=== PATIENT | female | born 1995 ===

== ENCOUNTER 2017-04-18 19:11 | Emergency (ER) | payer MEDICAID, OTHER ==
[2017-04-18 19:11] VITALS: BMI 34.2
[2017-04-18 19:25] VITALS: BP 120/64; PULSE 90; RESP 16; TEMP 98.1; O2SAT 100
--- NOTE | 2017-04-18 19:54 | ED PDOC ---
Addendum entered and electronically signed by Sonya Mayfield PA-C 04/19/17 12:03: Addendum Addendum: 04/19/17 12:02 Pt called and made aware of US results. will f/u with obgyn tis week for repeat US. Addendum entered and electronically signed by Florecita Marcos PA 04/19/17 11: 39: ED Course And Treatment - Laboratory Results Result Diagrams: 04/18/17 20:10 O2 Sat by Pulse Oximetry: 100 (RA) Progress Note: US read from radiologist: UTERUS: Single Live intrauterine gestation. CRL equivalent to 6 weeks 1 day gestatioin. Gestational sac diameter equivalent to 6 weeks 4 days gestation. age (Ultrasound estimated ): 6 weeks 3 days. Date of delivery (Ultrasound estimated) : 12/09/2017. Heart rate: 225 Bpm. This is above the normal range. Followup is advised. [place]- gestational hemorrhage: None. Normal 3 mm yolk sac identified. Uterus measures 9.1 x 4.3 x 5.8 cm. No mass CERVIX: Long and closed. No cervical abnormality seen. RIGHT OVARY: Measures 3.4 x 1.7 x 3.1 cm. No mass. Normal flow. LEFT OVARY: Measures 2.7 x 1.4 x 2.3 cm. No mass. Normal flow. FREE FLUID: None. OTHER FINDINGS: None. IMPRESSION: Single live intrauterine gestation of approximately 6 weeks 3 days gestational age. heart rate is above normal range and followup is advised with transvaginal pelvic ultrasound. No perigestational hemorrhage. Preliminary interpretation of this examination was reported by [facility] at 10:23 p.m. on 04/18/2017. There is concurrence of this report with the preliminary interpretation. Please note that the elevated heart rate was not described in the preliminary report of this examination. I called patient and left message to return call to ED. Original Note: HPI: Female Pain Time Seen by Provider: 04/18/17 19:38 Chief Complaint (Nursing): Female Genitourinary Chief Complaint (Provider): vaginal bleeding History Per: Patient History/Exam Limitations: no limitations Onset/Duration Of Symptoms: Days (x2) Current Symptoms Are (Timing): Still Present Additional Complaint(s): Raoul Buitrago is a 21 year old female, currently 12 weeks , who presents to the emergency department with a complaint of persistent, heavy vaginal bleeding associated with abdominal cramps, nausea and vomiting ongoing since last night. Denied fever, chills, dysuria or hematuria. Patient stated bleeding initially occurred 1 and half weeks ago but resolved after 1 day. She has not followed up with [facility] yet due to insurance issue but went to [facility] last week where an US was performed, revealing a gestational sac with no IUP noted and reported starting vitamins 2 weeks ago. P:0 PMD: none provided Past Medical History Reviewed: Historical Data, Nursing Documentation, Vital Signs Vital Signs: Last Vital Signs Temp 98.1 F 04/18/17 19:23 Pulse 90 04/18/17 19:23 Resp 16 04/18/17 19:23 BP 120/64 04/18/17 19:23 Pulse Ox 100 04/18/17 19:23 - Medical History PMH: Gastritis, Migraine Denies: Chronic Kidney Disease - Surgical History Surgical History: No Surg Hx - Family History Family History: States: No Known Family Hx - Social History Current smoker - smoking cessation education provided: No Alcohol: None Drugs: Denies - Home Medications Home Medications: Ambulatory Orders Medication Instructions Recorded Ondansetron [Zofran] 4 mg PO Q8H #15 tab 06/29/14 Ibuprofen [Motrin] 600 mg PO Q6 PRN #20 tab 11/22/14 Oxycodone HCl/Acetaminophen 1 tab PO Q4 #10 tab 11/22/14 [Percocet 325 mg-5 mg] Ciprofloxacin 0.3% [Ciloxan 0.3% 1 drop BOTHEYES QID #1 bottle 03/14/15 Oph] Sulfamethoxazole/Trimethopri 1 tab PO BID #20 tab 04/20/15 [Bactrim Ds 800 mg-160 mg] Oxycodone HCl/Acetaminophen 1 tab PO Q6 PRN #10 tab 04/21/15 [Percocet 325 mg-5 mg] Famotidine [Pepcid] 20 mg PO Q12 #14 tab 05/11/15 Ondansetron ODT [Zofran ODT] 4 mg PO Q6H PRN #16 odt 05/11/15 Ibuprofen [Motrin] 600 mg PO Q8 #20 tab 05/26/15 Sulfamethoxazole/Trimethopri 1 tab PO BID #14 tab 05/26/15 [Bactrim Ds 800 mg-160 mg] Oseltamivir Phosphate [Tamiflu] 1 cap PO BID #10 capsule 08/31/15 Ibuprofen [Motrin] 400 mg PO Q6 #30 tab 09/10/15 Ondansetron ODT [Zofran ODT] 4 mg PO Q8 PRN #12 odt 01/04/16 Ondansetron ODT [Zofran ODT] 4 mg PO TID #21 odt 03/03/16 Acetaminophen/Butalbital/Caf 1 - 2 tab PO Q6H PRN #15 tab 03/27/17 [Fioricet] Naproxen [Naprosyn] 500 mg PO BID PRN #20 tab 03/27/17 - Allergies Allergies/Adverse Reactions: Allergies Allergy/AdvReac Type Severity Reaction Status Date / Time No Known Allergies Allergy Verified 04/18/17 19:23 Review of Systems ROS Statement: Except As Marked, All Systems Reviewed And Found Negative Constitutional: Negative for: Fever, Chills Gastrointestinal: Positive for: Nausea, Vomiting, Abdominal Pain ("cramp") Genitourinary Female: Positive for: Vaginal Bleeding (heavy). Negative for: Dysuria, Hematuria Physical Exam - Reviewed Nursing Documentation Reviewed: Yes Vital Signs Reviewed: Yes - Physical Exam Appears: Positive for: Well, No Acute Distress Head Exam: Positive for: ATRAUMATIC, NORMOCEPHALIC Skin: Positive for: Warm, Dry Eye Exam: Positive for: EOMI, PERRL ENT: Negative for: Pharyngeal Erythema, Tonsillar Exudate Neck: Positive for: Painless ROM, Supple Cardiovascular/Chest: Positive for: Regular Rate, Rhythm, Chest Non Tender. Negative for: Murmur Respiratory: Positive for: Normal Breath Sounds. Negative for: Wheezing Gastrointestinal/Abdominal: Positive for: Bowel Sounds, Soft. Negative for: Tenderness, Mass, Distended, Guarding, Rebound Back: Positive for: Normal Inspection. Negative for: L CVA Tenderness, R CVA Tenderness Extremity: Positive for: Normal ROM. Negative for: Deformity Lymphatic: Negative for: Adenopathy Neurologic/Psych: Positive for: Alert. Negative for: Motor/Sensory Deficits - Laboratory Results Result Diagrams: 04/18/17 20:10 - ECG O2 Sat by Pulse Oximetry: 100 (RA) Pulse Ox Interpretation: Normal Medical Decision Making Medical Decision Making: Initial Impression: Vaginal bleeding; Differential Diagnosis: Threatening miscarriage; etopic ; UTI; spontaneous miscarriage Initial Plan: * BETA-HCG * Urine * Urine dipstick * CBC * US OB/transvag Time: 2222 --US OB FINDINGS: Gestation: Single live intrauterine with fetus corresponding to gestational age of 6 weeks and 1 day. heart rate is noted. Yolk sac noted. Uterus/cervix: See above Ovaries: Normal sized ovaries with vascular flow. Free fluid: No evidence of free fluid in the submitted images. IMPRESSION: Single live intrauterine with fetus corresponding to gestational age of 6 weeks and 1 day. heart rate is noted. Scribe Attestation: Documented by Shanna Fisher, acting as a scribe for Florecita Arguelles MD. Provider Scribe Attestation: All medical record entries made by the Scribe were at my direction and personally dictated by me. I have reviewed the chart and agree that the record accurately reflects my personal performance of the history, physical exam, medical decision making, and the department course for this patient. I have also personally directed, reviewed, and agree with the discharge instructions and disposition. Disposition - Clinical Impression Clinical Impression: Threatened miscarriage - Disposition [facility] - [facility]19/17 (CALL TOMORROW TO SETUP FOLLOW UP APPOINTMENT WITHIN A WEEK) Disposition: Routine/Home Disposition Time: 22:00 Condition: GOOD Additional Instructions: REST AND DRINK PLENTY OF HYDRATING FLUIDS FOR THE NEXT 48 HOURS DO NOT USE TAMPONS, DOUCHE OR HAVE SEX UNTIL YOU ARE REEVALUATED. CONTINUE VITAMINS. Instructions: Threatened Miscarriage (ED) Forms: [facility] ED School/Work Excuse
[2017-04-18 20:17] LABS: BASO # 0.1 K/uL (0.0-0.2); BASO % 0.4 % (0.0-2.0); EOS # 0.1 K/uL (0.0-0.7); EOS % 0.7 % (0.0-4.0); HEMOGLOBIN 12.1 g/dL (12.0-16.0); LYMPH # 2.6 K/uL (1.0-4.3); MEAN CELL VOLUME 84.9 fl (81.0-99.0); MEAN CORPUSCULAR HEMOGLOBIN 26.8 pg (27.0-31.0); MEAN CORPUSCULAR HGB CONC 31.5 g/dL (33.0-37.0); MEAN PLATELET VOLUME 7.7 fl (7.2-11.7); MONO % 7.5 % (0.0-10.0); NEUT # 9.7 K/uL (1.8-7.0); NEUT % 72.4 % (50.0-75.0); RBC 4.52 Mil/uL (3.80-5.20); RED CELL DISTRIBUTION WIDTH 13.7 % (11.5-14.5); WHITE BLOOD COUNT 13.4 K/uL (4.8-10.8)
--- NOTE | 2017-04-19 09:51 | US ---
PROCEDURE: OB Pelvic Ultrasound HISTORY: vag bleed pregn r/o ectopic COMPARISON: 04/11/2017 FINDINGS: UTERUS: Single Live intrauterine gestation. CRL equivalent to 6 weeks 1 day gestatioin Gestational sac diameter equivalent to 6 weeks 4 days gestation age (Ultrasound estimated): 6 weeks 3 days Date of delivery (Ultrasound estimated) : 12/09/2017 Heart rate: 225 Bpm. This is above the normal range. Followup is advised. [place]-gestational hemorrhage: None. Normal 3 mm yolk sac identified. Uterus measures 9.1 x 4.3 x 5.8 cm. No mass CERVIX: Long and closed. No cervical abnormality seen. RIGHT OVARY: Measures 3.4 x 1.7 x 3.1 cm. No mass. Normal flow. LEFT OVARY: Measures 2.7 x 1.4 x 2.3 cm. No mass. Normal flow. FREE FLUID: None. OTHER FINDINGS: None. IMPRESSION: Single live intrauterine gestation of approximately 6 weeks 3 days gestational age. heart rate is above normal range and followup is advised with transvaginal pelvic ultrasound. No perigestational hemorrhage. Preliminary interpretation of this examination was reported by [facility] at 10:23 p.m. on 04/18/2017. There is concurrence of this report with the preliminary interpretation. Please note that the elevated heart rate was not described in the preliminary report of this examination.
== END 2017-04-18 22:51 | disposition home or self-care (01) ==
LOC: H.ER 19:11
DX: O20.0 Threatened abortion (principal); Z3A.12 12 weeks gestation of pregnancy

== ENCOUNTER 2017-05-15 20:05 | Emergency (ER) | payer MEDICAID, OTHER ==
[2017-05-15 20:05] VITALS: BMI 34.2
[2017-05-15 20:27] VITALS: BP 145/87; PULSE 94; RESP 16; TEMP 98.1; O2SAT 97
[2017-05-15] MEDS ORDERED: Sodium Chloride 0.9% 1,000 ML IV STA (21:08)
[2017-05-15 21:18] LABS: BASO # 0.1 K/uL (0.0-0.2); BASO % 0.6 % (0.0-2.0); EOS # 0.1 K/uL (0.0-0.7); EOS % 0.4 % (0.0-4.0); HEMOGLOBIN 12.5 g/dL (12.0-16.0); LYMPH # 2.2 K/uL (1.0-4.3); LYMPH % 16.3 % (20.0-40.0); MEAN CELL VOLUME 84.2 fl (81.0-99.0); MEAN CORPUSCULAR HEMOGLOBIN 27.5 pg (27.0-31.0); MEAN CORPUSCULAR HGB CONC 32.7 g/dL (33.0-37.0); MEAN PLATELET VOLUME 8.2 fl (7.2-11.7); MONO # 0.8 K/uL (0.0-0.8); MONO % 5.9 % (0.0-10.0); NEUT # 10.2 K/uL (1.8-7.0); NEUT % 76.8 % (50.0-75.0); RBC 4.56 Mil/uL (3.80-5.20); RED CELL DISTRIBUTION WIDTH 13.3 % (11.5-14.5); WHITE BLOOD COUNT 13.3 K/uL (4.8-10.8)
[2017-05-15 21:40] LABS: SQUAMOUS EPITHIAL 5 /hpf (0-5); URINE AMORPHOUS SEDIMENT OCC /ul (<OCC); URINE BACTERIA FEW (<OCC); URINE BILIRUBIN NEGATIVE (NEGATIVE); URINE BLOOD NEGATIVE (NEGATIVE); URINE CLARITY TURBID (Clear); URINE COLOR YELLOW (YELLOW); URINE GLUCOSE (UA) NEG (Normal); URINE LEUKOCYTE ESTERASE SMALL Leu/uL (Negative); URINE NITRATE NEGATIVE (NEGATIVE); URINE PROTEIN 30 mg/dL (NEGATIVE); URINE UROBILINOGEN 0.2-1.0 mg/dL (0.2-1.0)
[2017-05-15 21:41] LABS: ALB/GLOB RATIO 1.3 (1.0-2.1); ALBUMIN 4.5 g/dL (3.5-5.0); ALT/SGPT 40 U/L (9-52); AST/SGOT 20 U/L (14-36); BLOOD UREA NITROGEN 6 mg/dl (7-17); CALCIUM 9.4 mg/dL (8.4-10.2); GFR AFRICAN-AMERICAN > 60; GFR NON-AFRICAN AMERICAN > 60
--- NOTE | 2017-05-15 22:36 | ED PDOC ---
HPI: Headache Time Seen by Provider: 05/15/17 20:29 Chief Complaint (Nursing): Headache Chief Complaint (Provider): Migraine History Per: Patient History/Exam Limitations: no limitations Additional Complaint(s): Patient is a 21 y/o female with a past medical history of migraines presenting to the emergency department for a typical migraine. Reports that the headache is frontal and located behind both eyes. Of note, patient is ten weeks (, P:0). Denies taking any pain medication due to fearing possible adverse effects on her . Also denies visual changes, photophobia, abdominal pain, vaginal bleeding, or other complaints. PCP: none provided. Past Medical History Reviewed: Historical Data, Nursing Documentation, Vital Signs Vital Signs: Last Vital Signs Temp 98.1 F 05/15/17 20:24 Pulse 94 H 05/15/17 20:24 Resp 16 05/15/17 20:24 BP 145/87 05/15/17 20:24 Pulse Ox 97 05/15/17 20:24 - Medical History PMH: Gastritis, Migraine Denies: Chronic Kidney Disease - Family History Family History: States: Unknown Family Hx - Social History Current smoker - smoking cessation education provided: No Ex-Smoker (has not smoked in the last 12 months): No Alcohol: None Drugs: Denies - Home Medications Home Medications: Ambulatory Orders Medication Instructions Recorded Ondansetron [Zofran] 4 mg PO Q8H #15 tab 06/29/14 Ibuprofen [Motrin] 600 mg PO Q6 PRN #20 tab 11/22/14 Oxycodone HCl/Acetaminophen 1 tab PO Q4 #10 tab 11/22/14 [Percocet 325 mg-5 mg] Ciprofloxacin 0.3% [Ciloxan 0.3% 1 drop BOTHEYES QID #1 bottle 03/14/15 Ophth] Sulfamethoxazole/Trimethopri 1 tab PO BID #20 tab 04/20/15 [Bactrim Ds 800 mg-160 mg] Oxycodone HCl/Acetaminophen 1 tab PO Q6 PRN #10 tab 04/21/15 [Percocet 325 mg-5 mg] Famotidine [Pepcid] 20 mg PO Q12 #14 tab 05/11/15 Ondansetron ODT [Zofran ODT] 4 mg PO Q6H PRN #16 odt 05/11/15 Ibuprofen [Motrin] 600 mg PO Q8 #20 tab 05/26/15 Sulfamethoxazole/Trimethopri 1 tab PO BID #14 tab 05/26/15 [Bactrim Ds 800 mg-160 mg] Oseltamivir Phosphate [Tamiflu] 1 cap PO BID #10 capsule 08/31/15 Ibuprofen [Motrin] 400 mg PO Q6 #30 tab 09/10/15 Ondansetron ODT [Zofran ODT] 4 mg PO Q8 PRN #12 odt 01/04/16 Ondansetron ODT [Zofran ODT] 4 mg PO TID #21 odt 03/03/16 Acetaminophen/Butalbital/Caf 1 - 2 tab PO Q6H PRN #15 tab 03/27/17 [Fioricet] Naproxen [Naprosyn] 500 mg PO BID PRN #20 tab 03/27/17 Doxylamine/Pyridoxine HCl (B6) 1 each PO QPM PRN #20 tablet. 05/15/17 [Millicent Jackson 10-10 mg Tablet] Miconazole Nitrate [Monistat 3] 1 each VG DAILY #1 kit 05/15/17 Nitrofurantoin Macrocrystals 100 mg PO BID #14 cap 05/15/17 [Macrobid] - Allergies Allergies/Adverse Reactions: Allergies Allergy/AdvReac Type Severity Reaction Status Date / Time No Known Allergies Allergy Verified 05/15/17 20:24 Review of Systems ROS Statement: Except As Marked, All Systems Reviewed And Found Negative Eyes: Negative for: Vision Change, Other (photophobia) Gastrointestinal: Negative for: Abdominal Pain Genitourinary Female: Negative for: Vaginal Bleeding Neurological: Positive for: Headache (frontal, behind both eyes) Physical Exam - Reviewed Nursing Documentation Reviewed: Yes Vital Signs Reviewed: Yes - Physical Exam Appears: Positive for: Well, Non-toxic, No Acute Distress Head Exam: Positive for: ATRAUMATIC, NORMAL INSPECTION, NORMOCEPHALIC Skin: Positive for: Normal Color, Warm, Dry Eye Exam: Positive for: Normal appearance, EOMI, PERRL Neck: Positive for: Normal Cardiovascular/Chest: Positive for: Regular Rate, Rhythm. Negative for: Murmur Respiratory: Positive for: Normal Breath Sounds. Negative for: Accessory Muscle Use, Respiratory Distress Gastrointestinal/Abdominal: Positive for: Normal Exam, Soft. Negative for: Tenderness Extremity: Positive for: Normal ROM. Negative for: Pedal Edema, Swelling Neurologic/Psych: Positive for: Alert, reconciliation clerk II-XII, Oriented (x3). Negative for : Motor/Sensory Deficits, Aphasia, Facial Droop - Laboratory Results Result Diagrams: 05/15/17 21:14 05/15/17 21:14 - ECG O2 Sat by Pulse Oximetry: 97 (RA) Pulse Ox Interpretation: Normal - Progress Re-evaluation Time: 23:20 Condition: Improved Medical Decision Making Medical Decision Making: Time: 21:08 Initial impression: Headache in the setting of Initial plan: ED Urine Acetaminophen 650 mg PO Reglan 10 mg IVP Normal Saline 1 L IV OB Ultrasound Reevaluation Scribe Attestation: Documented by Jocelyne Nuñez, acting as a scribe for Lily Car MD. Provider Scribe Attestation: All medical record entries made by the Scribe were at my direction and personally dictated by me. I have reviewed the chart and agree that the record accurately reflects my personal performance of the history, physical exam, medical decision making, and the department course for this patient. I have also personally directed, reviewed, and agree with the discharge instructions and disposition. Disposition - Clinical Impression Clinical Impression: Migraine, UTI in , Infection due to yeast - Patient ED Disposition Is Patient to be Admitted: No - Disposition Disposition: Routine/Home Disposition Time: 23:18 Condition: IMPROVED Additional Instructions: FOLLOW-UP WITH YOUR OB[facility] FOR REEVALUATION. Prescriptions: Doxylamine/Pyridoxine HCl (B6) [Millicent Jackson 10-10 mg Tablet] 1 each PO QPM PRN # 20 tablet. PRN Reason: Nausea/Vomiting Miconazole Nitrate [Monistat 3] 1 each VG DAILY #1 kit Nitrofurantoin Macrocrystals [Macrobid] 100 mg PO BID #14 cap Instructions: Migraine Headache (ED), Vulvovaginal Candidiasis (ED), Urinary Tract Infection in (ED) Forms: [employer] (Hungarian)
== END 2017-05-15 23:44 | disposition home or self-care (01) ==
LOC: H.ER 20:05
DX: G43.909 Migraine, unspecified, not intractable, without status migrainosus (principal); O23.40 Unspecified infection of urinary tract in pregnancy, unspecified trimester
CPT/HCPCS: 80053; 81003; 81025; 84702; 85025; 96374; 99284; J2765; J7040

== ENCOUNTER 2017-05-21 18:50 | Emergency (ER) | payer MEDICAID, OTHER ==
[2017-05-21 18:50] VITALS: BMI 34.2
[2017-05-21 18:58] VITALS: BP 135/79; PULSE 104; RESP 18; TEMP 98; O2SAT 97
[2017-05-21 19:33] LABS: BASO # 0.1 K/uL (0.0-0.2); BASO % 1.1 % (0.0-2.0); EOS # 0.1 K/uL (0.0-0.7); EOS % 1.1 % (0.0-4.0); HEMOGLOBIN 12.1 g/dL (12.0-16.0); LYMPH # 2.1 K/uL (1.0-4.3); LYMPH % 20.7 % (20.0-40.0); MEAN CELL VOLUME 84.5 fl (81.0-99.0); MEAN CORPUSCULAR HEMOGLOBIN 27.6 pg (27.0-31.0); MEAN CORPUSCULAR HGB CONC 32.7 g/dL (33.0-37.0); MEAN PLATELET VOLUME 7.9 fl (7.2-11.7); MONO # 0.7 K/uL (0.0-0.8); MONO % 7.1 % (0.0-10.0); NEUT # 7.1 K/uL (1.8-7.0); RBC 4.38 Mil/uL (3.80-5.20); RED CELL DISTRIBUTION WIDTH 13.7 % (11.5-14.5); WHITE BLOOD COUNT 10.1 K/uL (4.8-10.8)
[2017-05-21 19:52] LABS: SQUAMOUS EPITHIAL 4 /hpf (0-5); URINE BACTERIA RARE (<OCC); URINE BILIRUBIN NEGATIVE (NEGATIVE); URINE BLOOD NEGATIVE (NEGATIVE); URINE CALCIUM OXALATE CRYSTALS MANY /hpf (<OCC); URINE CLARITY CLOUDY (Clear); URINE COLOR YELLOW (YELLOW); URINE GLUCOSE (UA) NEG (Normal); URINE LEUKOCYTE ESTERASE NEG Leu/uL (Negative); URINE NITRATE NEGATIVE (NEGATIVE); URINE PROTEIN NEGATIVE (NEGATIVE); URINE UROBILINOGEN 0.2-1.0 mg/dL (0.2-1.0)
[2017-05-21 19:56] LABS: ALB/GLOB RATIO 1.3 (1.0-2.1); ALBUMIN 4.4 g/dL (3.5-5.0); ALT/SGPT 37 U/L (9-52); AST/SGOT 21 U/L (14-36); BLOOD UREA NITROGEN 6 mg/dl (7-17); CALCIUM 9.4 mg/dL (8.4-10.2); GFR AFRICAN-AMERICAN > 60; GFR NON-AFRICAN AMERICAN > 60
--- NOTE | 2017-05-21 19:57 | ED PDOC ---
HPI: Abdomen Time Seen by Provider: 05/21/17 19:08 Chief Complaint (Nursing): Abdominal Pain Chief Complaint (Provider): abdominal pain History Per: Patient History/Exam Limitations: no limitations Associated Symptoms: denies: Fever, Chills, Nausea, Vomiting, Diarrhea, Loss Of Appetite, Back Pain, Chest Pain, Constipation, Urinary Symptoms Additional Complaint(s): 21yo F in ED for eval of vaginal bleeding(scant) and resolved pelvic cramp. today. Pt had US in early in this month with normal US live IUP at 8 weeks. Pt then had vaginal bleeding. Pt denies nausea r/o voimting fever or chills. denies dizziness. states bleeding does not show on her panties or a pad. has an appointment wiht her obgyn this week. Abnormal Vaginal Bleeding: Yes Past Medical History Reviewed: Historical Data, Nursing Documentation, Vital Signs Vital Signs: Last Vital Signs Temp 98 F 05/21/17 18:54 Pulse 104 H 05/21/17 18:54 Resp 18 05/21/17 18:54 BP 135/79 05/21/17 18:54 Pulse Ox 97 05/21/17 19:59 - Medical History PMH: Gastritis, Migraine Denies: Chronic Kidney Disease - Family History Family History: States: Unknown Family Hx - Home Medications Home Medications: Ambulatory Orders Medication Instructions Recorded Ondansetron [Zofran] 4 mg PO Q8H #15 tab 06/29/14 Ibuprofen [Motrin] 600 mg PO Q6 PRN #20 tab 11/22/14 Oxycodone HCl/Acetaminophen 1 tab PO Q4 #10 tab 11/22/14 [Percocet 325 mg-5 mg] Ciprofloxacin 0.3% [Ciloxan 0.3% 1 drop BOTHEYES QID #1 bottle 03/14/15 Ophth] Sulfamethoxazole/Trimethopri 1 tab PO BID #20 tab 04/20/15 [Bactrim Ds 800 mg-160 mg] Oxycodone HCl/Acetaminophen 1 tab PO Q6 PRN #10 tab 04/21/15 [Percocet 325 mg-5 mg] Famotidine [Pepcid] 20 mg PO Q12 #14 tab 05/11/15 Ondansetron ODT [Zofran ODT] 4 mg PO Q6H PRN #16 odt 05/11/15 Ibuprofen [Motrin] 600 mg PO Q8 #20 tab 05/26/15 Sulfamethoxazole/Trimethopri 1 tab PO BID #14 tab 05/26/15 [Bactrim Ds 800 mg-160 mg] Oseltamivir Phosphate [Tamiflu] 1 cap PO BID #10 capsule 08/31/15 Ibuprofen [Motrin] 400 mg PO Q6 #30 tab 09/10/15 Ondansetron ODT [Zofran ODT] 4 mg PO Q8 PRN #12 odt 01/04/16 Ondansetron ODT [Zofran ODT] 4 mg PO TID #21 odt 03/03/16 Acetaminophen/Butalbital/Caf 1 - 2 tab PO Q6H PRN #15 tab 03/27/17 [Fioricet] Naproxen [Naprosyn] 500 mg PO BID PRN #20 tab 03/27/17 Doxylamine/Pyridoxine HCl (B6) 1 each PO QPM PRN #20 tablet. 05/15/17 [Millicent Jackson 10-10 mg Tablet] Miconazole Nitrate [Monistat 3] 1 each VG DAILY #1 kit 05/15/17 Nitrofurantoin Macrocrystals 100 mg PO BID #14 cap 05/15/17 [Macrobid] - Allergies Allergies/Adverse Reactions: Allergies Allergy/AdvReac Type Severity Reaction Status Date / Time No Known Allergies Allergy Verified 05/15/17 20:24 Review of Systems ROS Statement: Except As Marked, All Systems Reviewed And Found Negative Constitutional: Negative for: Fever, Chills Genitourinary Female: Positive for: Vaginal Bleeding, Pelvic Pain Physical Exam - Reviewed Nursing Documentation Reviewed: Yes Vital Signs Reviewed: Yes - Physical Exam Appears: Positive for: Well, Non-toxic, No Acute Distress Head Exam: Positive for: ATRAUMATIC, NORMAL INSPECTION, NORMOCEPHALIC Skin: Positive for: Normal Color, Warm, DRY Cardiovascular/Chest: Positive for: Regular Rate, Rhythm Respiratory: Positive for: CNT, Normal Breath Sounds Gastrointestinal/Abdominal: Positive for: Normal Exam, Bowel Sounds, Soft. Negative for: Tenderness Back: Positive for: Normal Inspection. Negative for: L CVA Tenderness, R CVA Tenderness Extremity: Positive for: Normal ROM Neurologic/Psych: Positive for: Alert, Oriented - Laboratory Results Result Diagrams: 05/21/17 19:30 05/21/17 19:30 - ECG O2 Sat by Pulse Oximetry: 97 - Progress ED Course And Treament: PT explained that last US r/o ectopic medical emergency. Pt made aware that some women bleed during their . Pt advised that labs will be done initially to asses Beta Quant and determine further testing if necessary. Pt understands Disposition - Clinical Impression Clinical Impression: Pelvic pain - Patient ED Disposition Is Patient to be Admitted: Transfer of Care - Disposition Disposition Time: 20:00 Condition: STABLE Forms: [facility] [facility] (Tajik)
--- NOTE | 2017-05-21 22:04 | ED PDOC ---
- Laboratory Results Result Diagrams: 05/21/17 19:30 05/21/17 19:30 - ECG O2 Sat by Pulse Oximetry: 97 - Progress ED Course And Treament: us Pelvic: IMPRESSION: 1. Single viable intrauterine as described. 2. Small subchorionic hemorrhage measuring 1.4 x 0.7 x 0.9 cm. Thank you for allowing us to participate in the care of your patient. Dictated and Authenticated by: Ronnie Becerra MD Disposition - Clinical Impression Clinical Impression: Pelvic pain - POA Present On Arrival: None - Disposition [facility]] Disposition: Routine/Home Disposition Time: 22:04 Condition: STABLE Instructions: Subchorionic Hemorrhage (ED) Forms: [facility] (Lao), [facility] ED School/Work Excuse
--- NOTE | 2017-05-22 09:31 | US ---
PROCEDURE: OB Pelvic Ultrasound HISTORY: vaginal bleeding/pelvic cramping COMPARISON: Pelvic ultrasound dated 05/04/2017. FINDINGS: UTERUS: Gestational sac: Single intrauterine gestation. Heart rate: 164 bpm. age (Ultrasound estimated): 11 weeks, 6 days [place]-gestational hemorrhage: Small subchorionic hemorrhage measuring 1.4 x 0.7 x 0.9 centimeter Date of delivery (Ultrasound estimated) : 12/02/2017 CERVIX: Long and closed. No cervical abnormality seen. RIGHT OVARY: Measures 2.2 x 0.9 x 1.9 cm. No mass lesion. Normal flow. LEFT OVARY: Not seen. FREE FLUID: None. OTHER FINDINGS: None. IMPRESSION: Unremarkable pelvic ultrasound. A live intrauterine gestation with mean gestational age of 11 weeks, 6 days. The heart rate is 164 beats per minute. Small 1.4 centimeter subchorionic hemorrhage is again identified inferiorly. Clinical follow-up is advised. The estimated date of delivery by ultrasound is 12/02/2017. The ultrasound dates correlate with the clinical dates.
== END 2017-05-21 22:54 | disposition home or self-care (01) ==
LOC: H.ER 18:50
DX: O20.8 Other hemorrhage in early pregnancy (principal); O26.891 Other specified pregnancy related conditions, first trimester; Z3A.11 11 weeks gestation of pregnancy; Z36.9 Encounter for antenatal screening, unspecified

== ENCOUNTER 2017-09-22 21:22 | Emergency (ER) | payer OTHER ==
[2017-09-22 21:45] VITALS: BMI 38.9
[2017-09-22] MEDS ORDERED: Lactated Ringer's 1,000 ML IV SCH (22:30)
[2017-09-22 23:03] LABS: BASO % 0.4 % (0.0-2.0); EOS # 0.1 K/uL (0.0-0.7); EOS % 1.2 % (0.0-4.0); HEMOGLOBIN 10.7 g/dL (12.0-16.0); LYMPH # 2.2 K/uL (1.0-4.3); LYMPH % 25.1 % (20.0-40.0); MEAN CELL VOLUME 82.8 fl (81.0-99.0); MEAN CORPUSCULAR HGB CONC 32.6 g/dL (33.0-37.0); MEAN PLATELET VOLUME 7.8 fl (7.2-11.7); MONO # 0.7 K/uL (0.0-0.8); MONO % 7.7 % (0.0-10.0); NEUT # 5.8 K/uL (1.8-7.0); NEUT % 65.6 % (50.0-75.0); RBC 3.97 Mil/uL (3.80-5.20); RED CELL DISTRIBUTION WIDTH 14.5 % (11.5-14.5); WHITE BLOOD COUNT 8.8 K/uL (4.8-10.8)
[2017-09-22 23:13] LABS: ALB/GLOB RATIO 1.1 (1.0-2.1); ALT/SGPT 30 U/L (9-52); AMYLASE 68 U/L (30-110); AST/SGOT 20 U/L (14-36); BLOOD UREA NITROGEN 6 mg/dl (7-17); CALCIUM 9.6 mg/dL (8.4-10.2); GFR AFRICAN-AMERICAN > 60; GFR NON-AFRICAN AMERICAN > 60; LIPASE 80 U/L (23-300)
[2017-09-22 23:39] LABS: SQUAMOUS EPITHIAL 3 /hpf (0-5); URINE BACTERIA RARE (<OCC); URINE BILIRUBIN NEGATIVE (NEGATIVE); URINE BLOOD NEGATIVE (NEGATIVE); URINE CALCIUM OXALATE CRYSTALS FEW /hpf (<OCC); URINE CLARITY CLOUDY (Clear); URINE COLOR YELLOW (YELLOW); URINE GLUCOSE (UA) NEG (Normal); URINE LEUKOCYTE ESTERASE NEG Leu/uL (Negative); URINE PROTEIN NEGATIVE (NEGATIVE); URINE UROBILINOGEN 0.2-1.0 mg/dL (0.2-1.0)
[2017-09-23 04:51] VITALS: BP 115/65; PULSE 98; TEMP 97.9; O2SAT 100
--- NOTE | 2017-09-24 14:19 | OBHP ---
Datetime: 09/22/2017 22:33 IP Adm Impression: , intrauterine ; No Active Labor IP Chief Complaint Other: Vomiting and diarrhea IP Adm Impression Other: Nausea and Vomiting IP Admit Plan: Observation/Evaluation Admit Comment, IP Provider: 22yo with IUP at 28.5wks presents here today c/o nausea and vomitin g since 4 days ago. She reports throwing up anything by mouth and feels thirsty. She had her last bow el movement 1 day ago but still feels nausea. She has not taken any meds for the condition. Denies any fever or chills, denies dysuria and frequency or cough. She denies VB or LOF and feels good movement. [place]: none FHR: Reactive Pelvic: Assessment: IUP at 28wks with Nausea nad Vomiting NST Reactive. Plan 1. IV Hydration 2. CBC,CMP, Amylase, lipase, Urinalysis, 3. Oral fluids. 23:32 Pt reevaluated. Labs Unremarkable Pt retains po oral fluids IV hydration. Plan: D/C Home F/U with OB clinic within 1 week Return to ER with [place] of symptoms. Extremities - PN: Normal Abdomen - PN: Normal Back - PN: Normal Lungs - PN: Normal Heart - PN: Normal Thyroid - PN: Normal Neurologic - PN: Normal General - PN: Normal FHR - Baseline A Provider: 140 Comments, ACOG Physical Exam: Appears well Heart: RRR Chest: CTA B/L Abd: Soft, NT, BS- present No epigastric tenderness Renal angle tenderness -ve Gestation - Est Wks by US: 28.5 EGA AdmitDate IP: 28.5 Vital Signs Provider: Reviewed IP Chief Complaint: Other NICHD Variability Prov Fetus A: Moderate 6-25bpm NICHD Accel Fetus A IP Provider: 15X15 FHR Category Provider Fetus A: Category I NICHD Decel Fetus A IP Provider: None Genitourinary Exam: Normal
== END 2017-09-23 00:48 | disposition home or self-care (01) ==
LOC: H.EROB2 21:22
DX: O21.0 Mild hyperemesis gravidarum (principal); Z3A.28 28 weeks gestation of pregnancy
CPT/HCPCS: 80053; 81003; 82150; 83690; 85025; 99283; J7120

== ENCOUNTER 2017-10-03 17:53 | Emergency (ER) | payer OTHER ==
[2017-10-03 19:31] VITALS: BMI 37.9
[2017-10-03] MEDS ORDERED: Lactated Ringer's 1,000 ML IV SCH (19:45)
--- NOTE | 2017-10-03 22:34 | OBHP ---
Datetime: 10/03/2017 19:22 IP Adm Impression: , intrauterine IP Chief Complaint Other: nausea/vomiting IP Admit Plan: Observation/Evaluation; Discharge home Admit Comment, IP Provider: CC: nausea and vomiting HPI: 22 YO @ 30.2wks IUP presents to [facility] for nausea and vomiting, with hx of gastritis. Pt s tates that her symptoms started Sunday when she started feeling very nautious and subsequently starte d vomiting. Total of 3x episodes of emesis sunday, 10x sunday and 3x today. Pt states that she has n ot been able to tolerate PO since Sunday. Emesis is yellow, no blood noted. Has hx of similiar episo de 1 week ago, was seen in [facility] for similair reason. No sick contacts at home, no new foods outside, eats at home. Endorsing good FM, no LOF, no VB and no ctx. MD: [facility], Dr. Guallpa ObHx: 8wks SAB in 2012, anemia PMH: denies SurgH: denies SH: denies ETOH, smoking and illict drug use FH: hx of DM in family Meds: PNV Allergies: NKDA PE GEN: NAD, looks dehydrated cardio: S1S2 no additional heart sounds Resp: clear breath sounds b/l Abdomen: Gravid, NT, BS+ Neuro: AAO x 3 Ext: NT, minimal pedel edema FM: 150, catagory I no ctx seen A/P: 22 YO @ 30.2wks IUP is seen in [facility] for nausea and vomiting. Pregancy related vs gastrit is. -IVF -continue monitor -cbc and cmp -pt would benefit from seeing grating machine operator as out patient Case discussed with Dr. Smiley Maldonado, PGY I OB Hospitalist Addendum: 22 yo at 30+2 wks w/ EDC 12/10/2017 w/ nausea and vomiting since M on., vomited x 3 on Sun, 10x on and 3-4 x today. Pt reports that she was sick on 09/22/2017, green d 4 days of N/V. Pt denies nauesa currently and reports that she gets sick after eating or drinking, sx similar to when she had gastritis prior to . Pt given 2 liters LR. Pt ablt to keep erich n crackers and madalyn-judi. Pt discharged home, has an u/s appoint tomorrow. Rec that she f/u w/ gas troenterologist. (ES) Pelvic Type - PN: Adequate Extremities - PN: Normal Abdomen - PN: Normal Back - PN: Normal Breast - PN: Not Done Lungs - PN: Normal Heart - PN: Normal Thyroid - PN: Not Done Neurologic - PN: Normal HEENT - PN: Normal General - PN: Normal FHR - Baseline A Provider: 150 Contraction Comments Provider: None EGA AdmitDate IP: 30.2 Vital Signs Provider: Reviewed Vital Signs Provider Details: Tachycardia IP Chief Complaint: Other NICHD Variability Prov Fetus A: Moderate 6-25bpm NICHD Accel Fetus A IP Provider: 15X15 FHR Category Provider Fetus A: Category I Genitourinary Exam: Normal DTRs - PN: Not Done
--- NOTE | 2017-10-03 22:36 | OBDCSUM ---
Datetime: 10/03/2017 22:27 Discharged to, Provider: Home Follow up at, Provider: Scheduled appt 10/18/17, [facility] Disch Instr Activity: Normal activity Disch Instr Diet: Restricted, specify Discharge Diet restrict Prov: fluids, small meals, bland diet Discharge Instructions, Provider: Routine instructions given Discharge Time: 10/03/2017 22:28 Follow up in weeks, Provider: next scheduled appoint Discharge Diagnosis Prov Other: Nausea and vomiting in
[2017-10-04 02:37] VITALS: BP 110/41; PULSE 134; RESP 18; TEMP 99; O2SAT 98
== END 2017-10-03 22:28 | disposition home or self-care (01) ==
LOC: H.EROB2 17:53
DX: O21.0 Mild hyperemesis gravidarum (principal); Z3A.30 30 weeks gestation of pregnancy
CPT/HCPCS: 99283; J7120

== ENCOUNTER 2017-12-14 16:08 | Inpatient (IN) | payer OTHER ==
[2017-12-14 17:01] VITALS: BMI 41.5
[2017-12-14 17:33] LABS: BASO % 0.5 % (0.0-2.0); EOS # 0.1 K/uL (0.0-0.7); EOS % 0.7 % (0.0-4.0); HEMOGLOBIN 11.4 g/dL (12.0-16.0); LYMPH # 1.6 K/uL (1.0-4.3); MEAN CELL VOLUME 79.5 fl (81.0-99.0); MEAN CORPUSCULAR HEMOGLOBIN 25.7 pg (27.0-31.0); MEAN CORPUSCULAR HGB CONC 32.4 g/dL (33.0-37.0); MEAN PLATELET VOLUME 8.7 fl (7.2-11.7); MONO # 0.8 K/uL (0.0-0.8); MONO % 9.2 % (0.0-10.0); NEUT # 6.4 K/uL (1.8-7.0); NEUT % 71.6 % (50.0-75.0); NRBC % 0.1 % (0.0-0.0); RBC 4.42 Mil/uL (3.80-5.20); RED CELL DISTRIBUTION WIDTH 17.1 % (11.5-14.5)
[2017-12-14 20:13] LABS: BARBITURATES, UR NEGATIVE (NEGATIVE); BENZODIAZEPINES, UR NEGATIVE (NEGATIVE); OPIATES, UR NEGATIVE (NEGATIVE); PHENCYCLIDINE, UR NEGATIVE (NEGATIVE)
[2017-12-15] MEDS: Lactated Ringer's 1,000 ML IV SCH ×5 (00:50→19:07)
[2017-12-15] MEDS ORDERED: NALBUPHINE HCL 10 MG/ML AMPUL IVP PRN (02:28)
--- NOTE | 2017-12-15 07:06 | OBPN ---
Datetime: 12/15/2017 06:36 Contraction Comments Provider: irregular q 5min FHR - Baseline A Provider: 120 NICHD Accel Fetus A IP Provider: 15X15 FHR Category Provider Fetus A: Category I NICHD Variability Prov Fetus A: Moderate 6-25bpm Dilatation, Provider: 4-5 Effacement, Provider: 70 Station, Provider: -2 Datetime: 12/15/2017 02:15 IP Progress Impression: Normal progression of labor IP Informed Consent Obtain: Vaginal Delivery IP Progress Plan: Continue present management IP Progress Note Comment: Pt seen and examined at bedside. contractions every 2-3 minutes; Cervix dilated 4 cm Stopped Cytotec Requesting pain control: ordered and administered nubain case d/w Dr. Maico Mancera MD PGY1 OB Hospitalist on-call 8PM-8AM : I was notified about progress...will observe labor progress...sto p Cytotec Vital Signs Provider: Reviewed; Within Normal Limits NICHD Decel Fetus A IP Provider: None Datetime: 12/14/2017 17:30 Presentation-Admit: Vertex Datetime: 10/03/2017 19:22 Vital Signs Provider Details: Tachycardia Datetime: 09/22/2017 22:33 Gestation - Est Wks by US: 28.5
[2017-12-15] MEDS ORDERED: Oxytocin 30 units/LR 500ML 30 U/500 ML BAG IV ONE (07:30)
--- NOTE | 2017-12-15 07:34 | OBPN ---
Datetime: 12/15/2017 06:36 IP Progress Note Comment: Patient states she wants to have breakfast. Patient tolerated cytotec x 2. last cytotec 2200 and dc due to ctx q-23h. case discussed with Dr Nina. -Agree with patient to have breakfast. -Will start pitocin after [facility]-call...spoke with pt about her condition (latent phase/slow progress)...will allo w to eat and start Piotcin augmentation after
[2017-12-15] MEDS ORDERED: Fentanyl/Bupivacaine HCl 250 ML EPI ONE (10:09)
--- NOTE | 2017-12-15 13:08 | OBPN ---
Datetime: 12/15/2017 11:48 IP Progress Impression: Normal progression of labor IP Informed Consent Obtain: Vaginal Delivery IP Procedures: Artificial ROM IP Progress Plan: Continue present management Membranes, Provider: Ruptured FHR - Baseline A Provider: 130 IP Progress Note Comment: Patient doing well, s/p epidural. VE=4/70/-1 TOCO = ctxing q 4 mins - Pitocin @ 8min A/P 1. Patient doing well, continue Pitocin for induction 2. CEFM and TOCO Vital Signs Provider: Reviewed; Within Normal Limits NICHD Accel Fetus A IP Provider: 15X15 NICHD Variability Prov Fetus A: Moderate 6-25bpm Dilatation, Provider: 4 Effacement, Provider: 70 Station, Provider: -1 NICHD Decel Fetus A IP Provider: None
--- NOTE | 2017-12-15 15:16 | OBPN ---
Datetime: 12/15/2017 15:09 IP Progress Impression: Normal progression of labor IP Informed Consent Obtain: Vaginal Delivery IP Procedures: Artificial ROM; Sterile Vag Exam IP Progress Plan: Continue present management Membranes, Provider: Ruptured Contraction Comments Provider: q 2 - 3 FHR - Baseline A Provider: 125 IP Progress Note Comment: Patient comfortable VE=5-6/70/0 VEX=877 mod cleo, +accels, no decels TOCO = ctxning q 2 mins, Pitocin at 20 mu/min A/P 1. Continue induction, patient progressing in labor 2. Pitocin can go up to 30 mu/min 3. CEFM and TOCO Vital Signs Provider: Reviewed; Within Normal Limits NICHD Accel Fetus A IP Provider: 15X15 NICHD Variability Prov Fetus A: Moderate 6-25bpm Dilatation, Provider: 5-6 Effacement, Provider: 70 Station, Provider: 0
[2017-12-15] MEDS ORDERED: Lidocaine 1% Inj (20ml) ONE (16:02)
--- NOTE | 2017-12-15 17:25 | OBPN ---
Datetime: 12/15/2017 17:21 IP Progress Impression: Reassuring heart rate IP Procedures: Sterile Vag Exam IP Progress Plan: Continue present management Contraction Comments Provider: q2-3min FHR - Baseline A Provider: 120s-130s IP Progress Note Comment: Patient resting comfortably without complaints. Continue current managemen t. Both maternal well-being and well-being reassuring at this time. Vital Signs Provider: Reviewed; Within Normal Limits NICHD Accel Fetus A IP Provider: 15X15 FHR Category Provider Fetus A: Category I NICHD Variability Prov Fetus A: Moderate 6-25bpm Dilatation, Provider: 5-6 Effacement, Provider: 100 Station, Provider: 0 NICHD Decel Fetus A IP Provider: None
[2017-12-15] MEDS ORDERED: ceFAZolin IV 2 gm in Dextrose 2 GM/50 ML BAG IVPB ONE (19:38)
[2017-12-15] MEDS ORDERED: Sodium Chloride 0.9% 1,000 ML IV SCH (19:45)
[2017-12-15] MEDS ORDERED: Lidocaine 2% PF (10 ml) Amp ONE (19:53)
[2017-12-15] MEDS ORDERED: Bupivacaine HCl 0.5% PF (30 ml) Inj ONE (19:53)
--- NOTE | 2017-12-15 19:53 | OBPN ---
Datetime: 12/15/2017 19:48 IP Progress Impression: Arrest of dilatation/descent; Reassuring heart rate IP Informed Consent Obtain: Section Delivery; Risks, Benefits and Alternatives Discussed IP Procedures: Sterile Vag Exam IP Progress Plan: Deliver- Section Contraction Comments Provider: q2-3 min FHR - Baseline A Provider: 130s IP Progress Note Comment: No cervical change in 4+ hours. Cervix also edematous. Discussed options w ith patient. Recommended delivery due to arrestive dilatation. Patient agrees with plan. Di scussed with patient the risks, benefits, alternatives of surgery. All patient questions answered. An esthesia notified. Vital Signs Provider: Reviewed; Within Normal Limits NICHD Accel Fetus A IP Provider: 15X15 FHR Category Provider Fetus A: Category I NICHD Variability Prov Fetus A: Moderate 6-25bpm Dilatation, Provider: 5-6 Effacement, Provider: 100 Station, Provider: 0 NICHD Decel Fetus A IP Provider: None
[2017-12-15] MEDS ORDERED: Morphine 5 mg/10 ml preservative-free Inj(Duramorph) ONE (19:54)
[2017-12-15] MEDS ORDERED: ePHEDrine 50 mg/ml Inj ONE (20:02)
[2017-12-15] MEDS ORDERED: Phenylephrine 10 mg/ml Inj ONE (20:07)
[2017-12-15] MEDS ORDERED: Succinylcholine 200 mg/10 ml Inj IV ONE (20:09)
[2017-12-15] MEDS ORDERED: Midazolam 2 MG/2 ML VIAL ONE (20:54)
[2017-12-15] MEDS ORDERED: Ketamine 50 mg/ml Inj (10 ml) ONE (20:56)
[2017-12-15] MEDS ORDERED: Oxycodone/Acetaminophen 5/325 mg Tab PO PRN ×3 (21:23→21:48)
[2017-12-15] MEDS ORDERED: DiphenhydrAMINE 50 mg/ml Inj IVP PRN (21:48)
[2017-12-15] MEDS ORDERED: Simethicone 80 mg Chewtab PO SCH (22:00)
--- NOTE | 2017-12-15 23:04 | OBDS ---
DELIVERY PERSONNEL Delivery Doctor: Cynthia Matthews MD Scrub Nurse: Yoana Almanza Experimental Mechanic Electrical: Yokasta Montiel RN Anesthesiologist: Rajiv Clifford MD Resident: Becki Simon MD MATERNAL INFORMATION Delivery Anesthesia: Epidural Medications in Delivery: oxytocin IV, methergine 0.2mg IM Estimated Blood Loss (ml): 800 Placenta Cultured: No Maternal Complications: None Provider Comments: Primary low flap transverse section via Pfannenstiel incision. Patient d elivered viable male with Apgars of 9 and 9 at one and 5 minutes respectively, 9 lbs. 12 oz., normal uterus, normal tubes and ovaries bilaterally. Estimated blood loss 800 mL Fluids 1100 mL lactated Ringer's Urine output 250 mL of clear urine No complications Patient tolerated delivery well. LABOR SUMMARY EDC: 12/10/2017 00:00 No. Babies in Womb: 1 Attempted: No Labor Anesthesia: Epidural LABOR INFORMATION Reason for Induction: Postterm Onset of Labor: 12/15/2017 12:00 Cervical Ripening Agents: Cytotec @ (Annotations: 50mcg given orally. ) Oxytocin: Induction Group B Beta Strep: Negative Steroids Given: None Reason Steroids Not Administered: Not Applicable MEMBRANES Membranes Rupture Method: Artificial Rupture of Membranes: 12/15/2017 12:00 Length of Rupture (hrs): 8.62 Amniotic Fluid Color: Clear Amniotic Fluid Amount: Moderate Amniotic Fluid Odor: Normal STAGES OF LABOR Stage 3 hrs: 0 Stage 3 min: 1 Total Time in Labor hrs: 8 Total Time in Labor min: 38 CSECTION DELIVERY Primary Indication: Secondary Arrest of Dilatation Secondary Indication: N/A CSection Urgency: Non Elective CSection Incidence: Primary Labor: Labor Elective: Nonelective CSection Incision: Lower Uterine Transverse Uterine Closure: Double-layer closure BABY A INFORMATION Infant Delivery Date/Time: 12/15/2017 20:37 Method of Delivery: Born in Route : No : N/A Forceps: N/A Vacuum Extraction: N/A Shoulder Dystocia : No (Annotations: Data stored by N on behalf of user) SHOULDER DYSTOCIA BABY A Delivery Date/Time: 12/15/2017 20:37 PRESENTATION/POSITION BABY A Presentation: Cephalic Cephalic Presentation: Vertex Vertex Position: Left Occipital Anterior PLACENTA INFORMATION BABY A Placenta Delivery Time : 12/15/2017 20:38 Placenta Method of Delivery: Manual Removal Placenta Status: Delivered SCORES BABY A Heart Rate 1 min: >100 bpm Resp Effort 1 min: Good Cry Reflex Irritability 1 min: Cough or Sneeze or Pulls Away Muscle Tone 1 min: Active Motion Color 1 min: Body [place], Extremities Blue SCORE 1 MIN: 9 Heart Rate 5 min: >100 bpm Resp Effort 5 min: Good Cry Reflex Irritability 5 min: Cough or Sneeze or Pulls Away Muscle Tone 5 min: Active Motion Color 5 min: Body [place], Extremities Blue SCORE 5 MIN: 9 INFORMATION BABY A Gestational Age at Delivery: 40.5 Gestational Status: Term Infant Outcome : Liveborn Infant Condition : Stable Infant Sex: Male IDENTIFICATION/MEDS BABY A ID Band Number: [id number] ID Band Location: Left Leg; Left Arm WEIGHT/LENGTH BABY A Infant Birthweight (gms): 4445 Weight (lb): 9 Weight (oz): 13 CORD INFORMATION BABY A No. Cord Vessels: 3 Nuchal Cord : N/A Cord Blood Taken: Yes Infant Suction: None ASSESSMENT BABY A Infant Complications: None Physical Findings at Delivery: Within Normal Limits Infant Respirations: Appears Normal Stunt Driver/ALS Called : No Care By: Dr. Mccullough/Dora Lopez RN Transferred To: Nursery
[2017-12-16] MEDS ORDERED: DiphenhydrAMINE 50 mg/ml Inj IVP PRN (01:42)
[2017-12-16] MEDS ORDERED: Oxycodone/Acetaminophen 5/325 mg Tab PO PRN (01:42)
[2017-12-16] MEDS: Simethicone 80 mg Chewtab PO SCH ×4 (04:00→22:05)
[2017-12-16 08:39] LABS: HEMOGLOBIN 8.6 g/dL (12.0-16.0); MEAN CELL VOLUME 79.5 fl (81.0-99.0); MEAN CORPUSCULAR HEMOGLOBIN 25.4 pg (27.0-31.0); MEAN CORPUSCULAR HGB CONC 31.9 g/dL (33.0-37.0); RBC 3.4 Mil/uL (3.80-5.20); RED CELL DISTRIBUTION WIDTH 17.1 % (11.5-14.5); WHITE BLOOD COUNT 11.4 K/uL (4.8-10.8)
[2017-12-16] MEDS: Oxycodone/Acetaminophen 5/325 mg Tab PO PRN ×2 (15:16→19:53)
--- NOTE | 2017-12-17 00:23 | OP ---
PROCEDURE DATE: 12/15/2017 PREOPERATIVE DIAGNOSIS: Arrest of dilatation and active labor. POSTOPERATIVE DIAGNOSIS: Arrest of dilatation and active labor. OPERATION PERFORMED: Primary low-flap transverse section via Pfannenstiel incision. OPERATIVE FINDINGS: Viable infant, male with Apgars of 9 and 9 at 1 and 5 minutes respectively, 9 pounds 12 ounces, normal uterus, normal tubes and ovaries bilaterally. ESTIMATED BLOOD LOSS: 800 mL. FLUIDS: 1100 mL Lactated Ringers. URINE OUTPUT: 250 mL of clear urine at the end of procedure. SURGEON: Dinesh Matthews MD TYPE OF ANESTHESIA: Epidural. ANESTHESIA ADMINISTERED BY: Dr. Clifford. COMPLICATIONS: None. DESCRIPTION OF PROCEDURE: The patient was taken to the operating room where epidural anesthesia was found to be adequate. The patient was prepped and draped in normal sterile fashion in dorsal supine position with a leftward tilt. A Pfannenstiel skin incision was made with scalpel. This was carried down through to the underlying layer of fascia with a scalpel. Midline dissection was made in the fascial layer of the scalpel. The fascial incision was then extended bilaterally and sharply with curved Flores scissors. The fascial layer was from the underlying rectus muscles, both bluntly and sharply with curved Flores scissors. The fascial incision was then extended. The rectus muscles were at the midline. The peritoneum was then identified, tented up with Katelynn clamps x2, and entered sharply with the Metzenbaum scissors. The peritoneal incision was then extended superiorly and inferiorly with good visualization of the urinary bladder. Bladder blade was inserted into the abdomen. The vesicouterine peritoneum was then identified, tented up with Katelynn clamps x2, and entered sharply with Metzenbaum scissors. This peritoneal incision was then extended bilaterally with Metzenbaum scissors. The bladder flap was created digitally. The [place] retractor was placed over the urinary bladder. The uterus was incised with a scalpel. The uterine incision was extended bilaterally, bluntly. The infant's head was delivered atraumatically. Nose and mouth were suctioned with bulb suction. The remainder of the was delivered without complication. The cord was clamped and cut. The was handed off to the awaiting environmental law professor. Cord gases were collected. Cord blood was collected. The placenta was removed manually. The uterus was cleared of all clots and debris. The uterine incision was repaired with 0 Vicryl in a running, locked fashion. The second layer of same suture was used to imbricate first and to obtain excellent hemostasis. Reinspection of the uterine incision proved excellent hemostasis. The abdomen and pelvis were irrigated with copious amounts of warm normal saline. Reinspection of the uterine incision proved excellent hemostasis. All instruments were removed from the patient. The peritoneal layer was closed with a running stitch of 2-0 chromic. The rectus muscles were reapproximated in the midline with a running stitch of 2-0 chromic. The fascial layer was closed with a running stitch of 0 Vicryl. Subcutaneous tissue was closed with a running stitch of 3-0 plain. The skin was closed with a subcutaneous stitch of 3-0 Vicryl. The patient tolerated the procedure well. All sponge count, lap count, and needle counts were correct x2. The patient was given 2 gm of Ancef just prior to the beginning of the procedure. There were no complications. The patient was taken to the recovery room in awake and stable condition. Dinesh Matthews MD
[2017-12-17] MEDS: Oxycodone/Acetaminophen 5/325 mg Tab PO PRN ×2 (00:50→04:45)
[2017-12-17] MEDS: Simethicone 80 mg Chewtab PO SCH ×4 (04:05→22:11)
--- NOTE | 2017-12-17 07:48 | OBPPN ---
Datetime: 12/17/2017 06:00 PP Pain Prov: Within normal limits PP Nausea Prov: Denies PP Flatus Prov: Yes PP BM Prov: No PP Breasts Prov: Not Done PP Heart Prov: Normal PP Lungs Prov: Normal PP Abdomen/Uterus Prov: Normal PP Lochia Prov: Normal PP Vulva/Perineum Prov: Not Done PP CVA Tenderness Prov: Not Done PP Extremities Prov: Normal PP C/S Incision Prov: Normal PP Progress Prov: Normal PP Impression Prov: Normal progression PP Plan Prov: Continue present management PP Progress Note Prov: Patient seen and examined today at bedside. No overnight events. Pt reports m ild abdominal pain well controlled with pain meds. Ambulating without difficulty. witho ut difficulty. Lochia less than menses volume. No BM yet but passing gas per rectum. Dressing removed last evening. Denies fever/chills, diarrhea, nausea/vomiting, chest pain, dyspnea, and dizziness. O: VSS0 GEN: NAD Cardio: S1S2, no murmurs Lungs: clear breath sounds b/l, no wheezing Abdomen: BS+, appropriate tenderness to palpation. Uterus is firm and at the level of the umbilicu s. Incision C/D/I. EXT: No edema, calves nontender NEURO/PSYCH: AAOx3, preserved affect and mood. A/P: 22 y/o female s/p c section doing well on POD 2. Afebrile. Anemia pp H/H 8.6/27.0. OOB with caution, encouraged ambulation. SCDs for DVT prophylaxis. Percocet 5/325mg q4, Motrin 600mg po q6, and Tylenol 650mg po q6 for pain as per pain scale Colace 100mg BID Iron BID. Encourage --YBecerra PGY1. OB Hospitalist Addendum: Pt seen and examined by me. Agree w/ above. POD 2 s/p c/s for arrest of dilation, doing well, breast and bottle feeding. Continue current management. (ES) IP PP Procedures: None Vital Signs Provider PP: Reviewed; Within Normal Limits
[2017-12-17] MEDS ORDERED: Lansinoh for Breast Feeding Mothers TP ONE (18:45)
[2017-12-18] MEDS: Simethicone 80 mg Chewtab PO SCH ×2 (03:48→09:31)
[2017-12-18] MEDS: Oxycodone/Acetaminophen 5/325 mg Tab PO PRN (10:23)
--- NOTE | 2017-12-18 11:31 | OBPPN ---
Datetime: 12/18/2017 06:19 PP Pain Prov: Within normal limits PP Nausea Prov: Denies PP Flatus Prov: Yes PP BM Prov: Yes PP Breasts Prov: Not Done PP Heart Prov: Normal PP Lungs Prov: Normal PP Abdomen/Uterus Prov: Normal PP Lochia Prov: Normal PP Vulva/Perineum Prov: Not Done PP CVA Tenderness Prov: Not Done PP Extremities Prov: Normal PP C/S Incision Prov: Normal PP Progress Prov: Normal PP Impression Prov: Normal progression PP Plan Prov: Discharge PP Progress Note Prov: Pt. is seen and examined at bedside this morning. No overnight events. Pt rep orts mild abdominal pain, but well controlled with pain meds. Tolerating well PO. witho ut difficulty. Lochia is similar to menses volume. + BM and gas per rectum. Denies fever/chills, diar serg, nausea/vomiting, chest pain, dyspnea, and dizziness. VSS Gen: NAD Cardio: s1s2, no m/r/g Resp: clear breath sounds b/l Abdomen: BS+, tenderness to palpation. Incision clean, intact, no erythema, exudates or dehiscence . Uterus is firm and at the level of the umbilicus. Ext: No edema, calves nontender Neuro/Psych: AAOx3, no focal deficit, preserved affect and mood. A/P: 22 yo s/p . Pt remains afebrile, doing well on POD 3. OOB with caution SCDs for DVT prophylaxis, encouraged ambulating Percocet 5/325mg/Ibuprofen 600mg for pain. Colace 100mg PO BID for constipation Iron for anemia. Encourage . PP CBC: 8.6/27.0 D/C home. YBecerra PGY1 IP PP Procedures: None Vital Signs Provider PP: Reviewed; Within Normal Limits
[2017-12-18 17:27] VITALS: BP 113/69; PULSE 90; RESP 19; TEMP 98.4; O2SAT 98
== END 2017-12-18 12:57 | disposition home or self-care (01) | DRG 370 ==
LOC: H.EROB2 16:08 → H.L&D 17:12 → H.OB/GYN 12-16 01:10
PROVIDERS: ADMIT Obstetrics & Gynecology; ATTEND Obstetrics & Gynecology
PROC: 10D00Z1 Extraction of Products of Conception, Low, Open Approach (ICD-10-PCS; principal; 2017-12-15)
PROC: 4A1HXCZ Monitoring of Products of Conception, Cardiac Rate, External Approach (ICD-10-PCS; 2017-12-15)
PROC: 3E0P7VZ Introduction of Hormone into Female Reproductive, Via Natural or Artificial Opening (ICD-10-PCS; 2017-12-15)
PROC: 10907ZC Drainage of Amniotic Fluid, Therapeutic from Products of Conception, Via Natural or Artificial Opening (ICD-10-PCS; 2017-12-15)
DX: O48.0 Post-term pregnancy (principal); O90.81 Anemia of the puerperium; O62.0 Primary inadequate contractions; O62.1 Secondary uterine inertia; D64.9 Anemia, unspecified; Z3A.40 40 weeks gestation of pregnancy; Z37.0 Single live birth

== ENCOUNTER 2018-09-23 15:52 | Emergency (ER) | payer OTHER ==
[2018-09-23 15:53] VITALS: BMI 41.5
[2018-09-23 15:58] VITALS: BP 122/65; PULSE 87; RESP 16; TEMP 98.5; O2SAT 99
[2018-09-23] MEDS ORDERED: Sodium Chloride 0.9% 1,000 ML IV ONE (16:15)
--- NOTE | 2018-09-23 16:27 | ED PDOC ---
History of Present Illness History of Present Illness: 23 year old female presents to the ED for evaluation of headache, nasal congestion, and body aches for three days. Patient reports today she vomited three times(NB, NB). She took no medications prior to arrival. LMP was the beginning of this month. Denies fever, abdominal pain, cough, SOB, chest pain, chills, rash, urinary symptoms, neck pain/stiffness, sick contacts, visual changes, numbness/weakness, and recent travel. PMD: [facility] HPI: Influenza Time Seen by Provider: 09/23/18 15:58 Chief Complaint: Flu-like Symptoms Chief Complaint (Provider): Flu-like Symptoms History Per: Patient Exam Limitations: no limitations Have you had recent travel within the past 21 days to any of: No Onset/Duration Of Symptoms: Days (x 3) Symptoms include: headache, bodyaches, nasal congestion Sick Contacts (Context): None Past Medical History Reviewed: Historical Data, Nursing Documentation, Vital Signs Vital Signs: Last Vital Signs Temp 98.5 F 09/23/18 15:55 Pulse 87 09/23/18 15:55 Resp 16 09/23/18 15:55 BP 122/65 09/23/18 15:55 Pulse Ox 99 09/23/18 15:55 - Medical History PMH: Gastritis, Migraine - Surgical History Surgical History: - Family History Family History: States: Unknown Family Hx - Social History Current smoker - smoking cessation education provided: No - Home Medications Home Medications: Ambulatory Orders Medication Instructions Recorded Vit No.126/Iron/Folic 1 tab PO DAILY MDD 1tab 12/14/17 [Classic Tablet] Ibuprofen [Motrin Tab] 600 mg PO Q4H PRN #20 tab 12/18/17 oxyCODONE/Acetaminophen [Percocet 1 tab PO Q6H PRN #20 tab 12/18/17 5/325 mg Tab] Acetaminophen [Acetaminophen 8 650 mg PO Q8 PRN #21 tablet.er 09/23/18 Hour] Naproxen 500 mg PO BID PRN #20 tab 09/23/18 Ondansetron ODT [Zofran ODT] 4 mg PO Q6 PRN #12 odt 09/23/18 - Allergies Allergies/Adverse Reactions: Allergies Allergy/AdvReac Type Severity Reaction Status Date / Time No Known Allergies Allergy Verified 09/22/17 21:44 Review of Systems ROS Statement: Except As Marked, All Systems Reviewed And Found Negative Constitutional: Positive for: Other (body aches). Negative for: Fever, Chills ENT: Positive for: Nose Congestion Gastrointestinal: Positive for: Vomiting (x 3). Negative for: Abdominal Pain Genitourinary Female: Negative for: Dysuria, Frequency Neurological: Positive for: Headache Physical Exam - Reviewed Nursing Documentation Reviewed: Yes Vital Signs Reviewed: Yes - Physical Exam Comments: GENERAL APPEARANCE: Patient is awake, alert, oriented x 3, in no acute distress. Resting comfortably, nontoxic appearing. SKIN: Warm, dry; (-) cyanosis, (-) rash EYES: (-) conjunctival injection ENMT: Mucous membranes moist. TMs: (-) erythema (-) bulging. Airway patent: (-) stridor. Pharynx: clear, uvula midline (-) erythema, (-) exudate. (-) sinus tenderness NECK: Supple, FROM (-) tenderness, (-) stiffness, (-) meningismus, (-) lymphadenopathy. CARDIO: Regular rate and rhythm LUGNS: Normal breath sounds, (-) rales, (-) rhonchi, (-) wheezing. Respirations even and nonlabored, speaking in full sentences. ABDOMEN AND GI: Soft; (-) tenderness, (-) guarding (-) mass; (-) CVA tenderness (-) distention. EXTREMITIES: (-) deformity NEURO AND PSYCH: Mental status as above; (-) focal findings. Gait: steady. Speech: clear. (-) facial asymmetry Medical Decision Making Medical Decision Makin:15 Impression: Headache, body aches, and vomiting, likely viral syndrome Initial Plan: --IV Access --CBC --CMP --Lipase --Urine preg --U/A --Tylenol 650 mg PO --Zofran 4 mg IV --NS IV 1,000 mls --Toradol 30 mg IM 1730 Patient sleeping comfortably on re-evaluation, no distress noted. 1830 Labs reviewed and grossly unremarkable. On re-evaluation, patient reports improvement of symptoms. On exam, patient remains AAOx3, in no acute distress. Tolerating PO intake. Lungs clear to auscultation, cardiac RRR, abdomen soft, non-tender, repeat neuro exam shows no focal findings. Vitals stable. Lab/Diagnostic results d/w the patient in great detail. Diagnosis of headache, bodyaches, vomiting, viral illness d/w the patient. Based on history, exam and diagnostic results, plan will be for outpatient follow up with PMD/clinic. Patient instructed to follow-up with pmd / referral provided / the clinic in 1- 2 days without fail. Advised to take medication as prescribed. Return to the emergency room at any time for any new or worsening symptoms. Patient states she fully agrees with and understands discharge instructions. States that she agrees with the plan and disposition. Verbalized and repeated discharge instructions and plan. I have given the patient opportunity to ask any additional questions. Scribe Attestation: Documented by Candice Menard acting as a scribe for Apple Moreira PA-C, MD Scribe Attestation: All medical record entries made by the Scribe were at my direction and personally dictated by me. I have reviewed the chart and agree that the record accurately reflects my personal performance of the history, physical exam, medical decision making, and the department course for this patient. I have also personally directed, reviewed, and agree with the discharge instructions and disposition. - Laboratory Results Result Diagrams: 09/23/18 17:13 09/23/18 17:13 Urine POC: Negative - ECG O2 Sat by Pulse Oximetry: 99 (RA) Pulse Ox Interpretation: Normal Disposition - Clinical Impression Clinical Impression: Myalgia, Vomiting, Nasal congestion, Viral syndrome, Headache - Patient ED Disposition Is Patient to be Admitted: No Counseled Patient/Family Regarding: Studies Performed, Diagnosis, Need For Followup, Rx Given - Disposition Referrals: [facility] [Outside] Disposition: Routine/Home Disposition Time: 18:30 Condition: STABLE Additional Instructions: The emergency medical care you received today was directed at your acute symptoms. If you were prescribed any medication, please fill it and take as directed. It may take several days for your symptoms to resolve. Return to the Emergency Department if your symptoms worsen, do not improve, or if you have any other problems. Please contact your doctor in 2 days for re-evaluation and follow up / or call one of the physicians/clinics you have been referred to that are listed on the Patient Visit Information form that is included in your discharge packet. Bring any paperwork you were given at discharge with you along with any medications you are taking to your follow up visit. Our treatment cannot replace ongoing medical care by a primary care provider (PCP) outside of the emergency department. Prescriptions: Acetaminophen [Acetaminophen 8 Hour] 650 mg PO Q8 PRN #21 tablet.er PRN Reason: pain/fever Naproxen 500 mg PO BID PRN #20 tab PRN Reason: Pain, Moderate (4-7) Ondansetron ODT [Zofran ODT] 4 mg PO Q6 PRN #12 odt PRN Reason: Nausea/Vomiting Instructions: Nausea and Vomiting, Adult, Cough, Runny Nose, and the Common Cold, Viral Syndrome (DC) Forms: [employer] (Macedonian) Print Language: URDU - POA Present On Arrival: None Results - Lab Results Lab Results: 09/23/18 09/23/18 09/23/18 17:13 17:13 17:13 WBC RBC Hgb Hct MCV MCH MCHC RDW Plt Count MPV Neut % (Auto) Lymph % (Auto) Placer % (Auto) Eos % (Auto) Baso % (Auto) Neut # (Auto) Lymph # (Auto) Placer # (Auto) Eos # (Auto) Baso # (Auto) Sodium 138 Potassium 4.3 Chloride 102 Carbon Dioxide 25 Anion Gap 15 BUN 7 Creatinine 0.4 L Est GFR ( Amer) > 60 Est GFR (Non-Af Amer) > 60 Random Glucose 95 Calcium 8.8 Total Bilirubin 0.8 AST 30 ALT 47 Alkaline Phosphatase 74 Total Protein 8.0 Albumin 4.5 Globulin 3.5 Albumin/Globulin Ratio 1.3 Lipase 46 Urine Color Yellow Urine Clarity Slighty-cloudy Urine pH 7.0 Ur Specific Mccarley 1.025 Urine Protein Negative Urine Glucose (UA) Neg Urine Ketones Negative Urine Blood Negative Urine Nitrate Negative Urine Bilirubin Negative Urine Urobilinogen 1.0 Ur Leukocyte Esterase Neg Urine RBC (Auto) 3 Urine Microscopic WBC 1 Ur Squamous Epith Cells 3 Influenza Typ A,B (EIA) Negative for flu a/b 09/23/18 17:13 WBC 8.8 RBC 4.90 Hgb 13.0 D Hct 41.0 MCV 83.6 D MCH 26.5 L MCHC 31.7 L RDW 14.6 H Plt Count 312 MPV 7.7 Neut % (Auto) 76.0 H Lymph % (Auto) 16.4 L Placer % (Auto) 6.6 Eos % (Auto) 0.8 Baso % (Auto) 0.2 Neut # (Auto) 6.7 Lymph # (Auto) 1.4 Placer # (Auto) 0.6 Eos # (Auto) 0.1 Baso # (Auto) 0.0 Sodium Potassium Chloride Carbon Dioxide Anion Gap BUN Creatinine Est GFR ( Amer) Est GFR (Non-Af Amer) Random Glucose Calcium Total Bilirubin AST ALT Alkaline Phosphatase Total Protein Albumin Globulin Albumin/Globulin Ratio Lipase Urine Color Urine Clarity Urine pH Ur Specific Mccarley Urine Protein Urine Glucose (UA) Urine Ketones Urine Blood Urine Nitrate Urine Bilirubin Urine Urobilinogen Ur Leukocyte Esterase Urine RBC (Auto) Urine Microscopic WBC Ur Squamous Epith Cells Influenza Typ A,B (EIA)
[2018-09-23 17:17] LABS: BASO % 0.2 % (0.0-2.0); EOS # 0.1 K/uL (0.0-0.7); EOS % 0.8 % (0.0-4.0); LYMPH # 1.4 K/uL (1.0-4.3); LYMPH % 16.4 % (20.0-40.0); MEAN CELL VOLUME 83.6 fl (81.0-99.0); MEAN CORPUSCULAR HEMOGLOBIN 26.5 pg (27.0-31.0); MEAN CORPUSCULAR HGB CONC 31.7 g/dL (33.0-37.0); MEAN PLATELET VOLUME 7.7 fl (7.2-11.7); MONO # 0.6 K/uL (0.0-0.8); MONO % 6.6 % (0.0-10.0); NEUT # 6.7 K/uL (1.8-7.0); RBC 4.9 Mil/uL (3.80-5.20); RED CELL DISTRIBUTION WIDTH 14.6 % (11.5-14.5); WHITE BLOOD COUNT 8.8 K/uL (4.8-10.8)
[2018-09-23 17:30] LABS: SQUAMOUS EPITHIAL 3 /hpf (0-5); URINE BILIRUBIN NEGATIVE (NEGATIVE); URINE BLOOD NEGATIVE (NEGATIVE); URINE CLARITY SLIGHTY-CLOUDY (Clear); URINE COLOR YELLOW (YELLOW); URINE GLUCOSE (UA) NEG (NEGATIVE); URINE LEUKOCYTE ESTERASE NEG Leu/uL (Negative); URINE PROTEIN NEGATIVE (NEGATIVE)
[2018-09-23 17:43] LABS: ALB/GLOB RATIO 1.3 (1.0-2.1); ALBUMIN 4.5 g/dL (3.5-5.0); ALT/SGPT 47 U/L (9-52); AST/SGOT 30 U/L (14-36); BLOOD UREA NITROGEN 7 mg/dl (7-17); CALCIUM 8.8 mg/dL (8.4-10.2); GFR NON-AFRICAN AMERICAN > 60; LIPASE 46 U/L (23-300)
== END 2018-09-23 19:03 | disposition home or self-care (01) ==
LOC: H.ER 15:52
DX: R50.9 Fever, unspecified (principal); M79.10 Myalgia, unspecified site; R09.81 Nasal congestion; B34.9 Viral infection, unspecified
CPT/HCPCS: 80053; 81003; 81025; 83690; 85025; 87804; 96361; 96374; 96375; 99282; J1885; J2405; J7040

== ENCOUNTER 2018-10-18 18:57 | Emergency (ER) | payer OTHER ==
[2018-10-18 18:57] VITALS: BMI 41.5
[2018-10-18 19:15] VITALS: RESP 16
[2018-10-18] MEDS ORDERED: Promethazine/Cod 6.25mg-10mg/5ml Syr UD PO STA (19:30)
--- NOTE | 2018-10-18 19:35 | ED PDOC ---
HPI: General Adult Time Seen by Provider: 10/18/18 19:19 Chief Complaint (Nursing): Flu-like Symptoms Chief Complaint (Provider): Flu-like Symptoms History Per: Patient Onset/Duration Of Symptoms: Days (x3) Current Symptoms Are (Timing): Still Present Additional Complaint(s): 23 year old female with no significant past medical history presents to the ED with flu like symptoms for x3 days. Patient states she has fever, migraines, cough, x1 episode of vomiting yesterday, diarrhea, sore throat, body aches, chest pain when she coughs, loss of appetite, and runny nose. PMD: clinic Past Medical History Reviewed: Historical Data, Nursing Documentation, Vital Signs Vital Signs: Last Vital Signs Temp 99.2 F 10/18/18 19:13 Pulse 87 10/18/18 19:13 Resp 16 10/18/18 19:13 BP 144/92 H 10/18/18 19:13 Pulse Ox 98 10/18/18 19:13 - Medical History PMH: Gastritis, Migraine Denies: Depression, Diabetes, HTN, Chronic Kidney Disease - Surgical History Surgical History: - Family History Family History: States: Unknown Family Hx - Home Medications Home Medications: Ambulatory Orders Medication Instructions Recorded Vit No.126/Iron/Folic 1 tab PO DAILY MDD 1tab 12/14/17 [Classic Tablet] Ibuprofen [Motrin Tab] 600 mg PO Q4H PRN #20 tab 12/18/17 oxyCODONE/Acetaminophen [Percocet 1 tab PO Q6H PRN #20 tab 12/18/17 5/325 mg Tab] Acetaminophen [Acetaminophen 8 650 mg PO Q8 PRN #21 tablet.er 09/23/18 Hour] Naproxen 500 mg PO BID PRN #20 tab 09/23/18 Ondansetron ODT [Zofran ODT] 4 mg PO Q6 PRN #12 odt 09/23/18 Promethazine/Codeine 5 ml PO Q6 PRN #100 ml 10/18/18 [Phenergan/Codeine Oral Syrup] - Allergies Allergies/Adverse Reactions: Allergies Allergy/AdvReac Type Severity Reaction Status Date / Time No Known Allergies Allergy Verified 09/22/17 21:44 Review of Systems ROS Statement: Except As Marked, All Systems Reviewed And Found Negative Constitutional: Positive for: Fever, Other (body aches) ENT: Positive for: Throat Pain, Other (runny nose) Cardiovascular: Positive for: Chest Pain (with cough) Respiratory: Positive for: Cough Gastrointestinal: Positive for: Vomiting, Diarrhea Neurological: Positive for: Other (migraines) Physical Exam - Reviewed Nursing Documentation Reviewed: Yes Vital Signs Reviewed: Yes - Physical Exam Appears: Positive for: No Acute Distress Head Exam: Positive for: ATRAUMATIC, NORMOCEPHALIC Skin: Positive for: Normal Color, Warm, Dry Eye Exam: Positive for: Normal appearance, EOMI, PERRL ENT: Positive for: Pharyngeal Erythema (mild). Negative for: Tonsillar Exudate, Tonsillar Swelling Neck: Positive for: Normal (and no lymphadenopathy), Painless ROM Cardiovascular/Chest: Positive for: Regular Rate, Rhythm. Negative for: Murmur Respiratory: Positive for: Normal Breath Sounds. Negative for: Respiratory Distress Gastrointestinal/Abdominal: Positive for: Normal Exam, Soft. Negative for: Tenderness Neurological/Psych: Positive for: Awake, Alert, Oriented (x3) - ECG O2 Sat by Pulse Oximetry: 98 (RA) Pulse Ox Interpretation: Normal - Radiology X-Ray: Viewed By Sc X-Ray Interpretation: No Acute Disease - Progress Re-evaluation Time: 23:09 Condition: Re-examined, Improved Medical Decision Making Medical Decision Making: Time: 1929 Impression: flu-like and URI symptoms Differentials include: influenza, acute bronchitis, rule out pneumonia and strep. Plan: --u preg --CXR --Phenergan/Codeine Oral Syrup --Toradol --Influenza --Rapid Strep ScribeAttestation: Documented byRosemarie James, acting as a scribe for Jesus Barnes MD. Provider ScribeAttestation: All medical record entries made by the Scribe were at my direction and personally dictated by me. I have reviewed the chart and agree that the record accurately reflects my personal performance of the history, physical exam, medical decision making, and the department course for this patient. I have also personally directed, reviewed, and agree with the discharge instructions and disposition. Disposition - Clinical Impression Clinical Impression: URI (upper respiratory infection), Influenza-like symptoms - Patient ED Disposition Is Patient to be Admitted: No Doctor Will See Patient In The: Office Counseled Patient/Family Regarding: Studies Performed, Diagnosis, Need For Followup - Disposition Referrals: [facility] [Outside] Disposition: Routine/Home Disposition Time: 22:30 Condition: GOOD Additional Instructions: MARIE CHANEL, thank you for letting us take care of you today. Your provider was Jesus Barnes MD and you were treated for FEVER;THROAT PAIN;VOMITING. The emergency medical care you received today was directed at your acute symptoms. If you were prescribed any medication, please fill it and take as directed. It may take several days for your symptoms to resolve. Return to the Emergency Department if your symptoms worsen, do not improve, or if you have any other problems. Please contact your doctor or call one of the physicians/clinics you have been referred to that are listed on the Patient Visit Information form that is included in your discharge packet. Bring any paperwork you were given at discharge with you along with any medications you are taking to your follow up visit. Our treatment cannot replace ongoing medical care by a primary care provider outside of the emergency department. Thank you for allowing the [facility] team to be part of your care today. If you had an X-Ray or CT scan: A Radiologist will review the ED reading if any change in treatment is needed we will contact you. Prescriptions: Promethazine/Codeine [Phenergan/Codeine Oral Syrup] 5 ml PO Q6 PRN #100 ml PRN Reason: Cough Instructions: Viral Upper Respiratory Infection, Adult (DC) Forms: [employer] (Nauruan)
[2018-10-18] MEDS ORDERED: Promethazine/Cod 6.25mg-10mg/5ml Syr UD ONE (21:24)
[2018-10-18 23:26] VITALS: BP 132/64; PULSE 91; TEMP 98.8
[2018-10-19 20:32] VITALS: O2SAT 98
--- NOTE | 2018-10-21 09:41 | RAD ---
Date of service: 10/18/2018 HISTORY: COMPARISON: 09/10/2015 TECHNIQUE: Chest PA and lateral views FINDINGS: LUNGS: There is a small subtle area of patchy density in the right upper lobe, new from prior study. This may suggest small area of early pneumonia and infiltrate. No other infiltrates are seen elsewhere. PLEURA: No significant pleural effusion identified. No pneumothorax apparent. CARDIOVASCULAR: No aortic atherosclerotic calcification present. Normal cardiac size. No pulmonary vascular congestion. OSSEOUS STRUCTURES: No significant abnormalities. VISUALIZED UPPER ABDOMEN: Normal. OTHER FINDINGS: None. IMPRESSION: Small patchy new infiltrate in the right upper lobe from prior study suggesting small pneumonia. Follow-up chest radiograph would be suggested. No preliminary report has been provided. Therefore this case will be placed into the PA review folder.
== END 2018-10-18 23:26 | disposition home or self-care (01) ==
LOC: H.ER 18:57
DX: J06.9 Acute upper respiratory infection, unspecified (principal); J11.1 Influenza due to unidentified influenza virus with other respiratory manifestations
CPT/HCPCS: 71046; 81025; 87070; 87430; 87804; 96372; 99282; J1885